=== PATIENT | male | born 1955 | race Two or more races ===

== ENCOUNTER 2020-09-08 16:06 | Emergency (ER) | payer MEDICAID, OTHER ==
[~2020-09-08] VITALS: Ht 162.6 cm; Wt 68.0 kg
[2020-09-08 16:10] VITALS: BP 100/58
[2020-09-08] MEDS ORDERED: LIBRIUM10 MG ORAL (16:24)
[2020-09-08] MEDS ORDERED: PROTONIX40 MG ORAL (16:24)
[2020-09-08] MEDS ORDERED: TRAZODONE HCL150 MG ORAL (16:24)
--- NOTE | 2020-09-08 16:32 | Emergency Room Report ---
History of Present Illness General Chief Complaint: Alcohol Intoxication Present Illness HPI 65-year-old male presents to the emergency department complaining of 6 out of 10 severity pain to the bilateral knees status post mechanical trip and fall for which he landed on his knees. Patient reports that he has been drinking a lot of vodka today. Patient reports he only drinks vodka. He is also reporting some left-sided chest pain. He denies midline neck or back pain he denies headache he denies nausea or vomiting. He denies abdominal pain or tenderness. Patient reports he is hungry. He reports he is currently taking Librium, Protonix and trazodone. He denies having any other complaints at this time. He denies cardiac HX. Allergies: Coded Allergies: No Known Allergies (Unverified , 09/08/20) COVID-19 Screening Contact w/high risk pt: No Experienced COVID-19 symptoms?: No COVID-19 Testing performed WINDMILL TECHNICIAN: No Patient History Past Medical History: see triage record Past Surgical History: none Pertinent Family History: none Reviewed Nursing Documentation: PMH: Agreed; PSxH: Agreed Review of Systems All Other Systems: negative except mentioned in HPI Physical Exam Vital Signs Date Time Temp Pulse Resp B/P (MAP) Pulse Ox O2 Delivery O2 Flow Rate FiO2 09/08/20 16:08 98.4 100 19 100/58 (72) 100 Room Air Sp02 EP Interpretation: reviewed, normal General Appearance: no apparent distress, alert, GCS 15, non-toxic Head: normocephalic, atraumatic Eyes: bilateral eye normal inspection, bilateral eye PERRL ENT: hearing grossly normal, normal voice Neck: full range of motion, no bony tend Respiratory: chest non-tender, lungs clear, normal breath sounds, no respiratory distress, no accessory muscle use, no wheezing, speaking full sentences Cardiovascular #1: regular rate, rhythm, no edema, normal capillary refill Gastrointestinal: normal bowel sounds, non tender, soft, non-distended, no guarding Genitourinary: normal inspection Musculoskeletal: back normal, normal range of motion, gait/station normal, tender - anterior knees tenderness, FROM, able to flex and extend. no obvious deformities, no increased laxity on exam. Some dirt on the pants in marixa anterior knee area c/w contact with the ground. Neurologic: alert, motor strength/tone normal, oriented x3, sensory intact, responsive, speech normal Psychiatric: judgement/insight normal Skin: no rash, normal color Medical Decision Making PA Attestation Dr. Browne is my supervising Physician whom patient management has been dis cussed with. Diagnostic Impression: Primary Impression: Acute alcoholic intoxication Qualified Codes: F10.920 - Alcohol use, unspecified with intoxication, uncomplicated ER Course 65-year-old male presents to the emergency department complaining of 6 out of 10 severity pain to the bilateral knees status post mechanical trip and fall for which he landed on his knees. Patient reports that he has been drinking a lot of vodka today. Patient reports he only drinks vodka. He is also reporting some left-sided chest pain. He denies midline neck or back pain he denies headache he denies nausea or vomiting. He denies abdominal pain or tenderness. Patient reports he is hungry. He reports he is currently taking Librium, Protonix and trazodone. He denies having any other complaints at this time. He denies cardiac HX. Ddx considered but are not limited to ETOH, Trauma, Syncope, dementia, OD Vital signs: are WNL, pt. is afebrile H&PE are most consistent with ETOH abuse. NO obvious signs of head trauma. No neck pain. Pt. answers questions appropriately. ORDERS: - CBC: WNL -CMP: WNL -Troponin: 0.00 -Serum ETOH : 210 -EK NSR X-rays Bilateral Knees- 3 views each: OA/degenerative changes ED INTERVENTIONS: Observance while he detoxifies. Pt. was allowed to sleep/rest. PT. remained awake and alert x 4. HE eventually ambulated on his own to the nurses station and requested to go home. Pt. is clinically sober with non- slurred detailed speech and a normal steady gait. DISCHARGE: At this time pt. is stable for d/c to home. Will provide printed patient care instructions, and any necessary prescriptions. Care plan and follow up instructions have been discussed with the patient prior to discharge. Labs Test 09/08/20 16:45 White Blood Count 8.0 K/UL (4.8-10.8) Red Blood Count 4.56 M/UL (4.70-6.10) Hemoglobin 13.3 G/DL (14.2-18.0) Hematocrit 42.5 % (42.0-52.0) Mean Corpuscular Volume 93 FL (80-99) Mean Corpuscular Hemoglobin 29.3 PG (27.0-31.0) Mean Corpuscular Hemoglobin Concent 31.4 G/DL (32.0-36.0) Red Cell Distribution Width 17.8 % (11.6-14.8) Platelet Count 253 K/UL (150-450) Mean Platelet Volume 7.4 FL (6.5-10.1) Neutrophils (%) (Auto) 62.3 % (45.0-75.0) Lymphocytes (%) (Auto) 28.1 % (20.0-45.0) Monocytes (%) (Auto) 5.4 % (1.0-10.0) Eosinophils (%) (Auto) 2.4 % (0.0-3.0) Basophils (%) (Auto) 1.8 % (0.0-2.0) Sodium Level 145 MMOL/L (136-145) Potassium Level 3.8 MMOL/L (3.5-5.1) Chloride Level 111 MMOL/L (98-107) Carbon Dioxide Level 26 MMOL/L (21-32) Anion Gap 8 mmol/L (5-15) Blood Urea Nitrogen 8 mg/dL (7-18) Creatinine 0.8 MG/DL (0.55-1.30) Estimat Glomerular Filtration Rate > 60 mL/min (>60) Glucose Level 98 MG/DL (74-106) Calcium Level 8.4 MG/DL (8.5-10.1) Total Bilirubin 0.3 MG/DL (0.2-1.0) Aspartate Amino Transf (AST/SGOT) 24 U/L (15-37) Alanine Aminotransferase (ALT/SGPT) 27 U/L (12-78) Alkaline Phosphatase 77 U/L (46-116) Troponin I 0.000 ng/mL (0.000-0.056) Total Protein 6.9 G/DL (6.4-8.2) Albumin 3.3 G/DL (3.4-5.0) Globulin 3.6 g/dL Albumin/Globulin Ratio 0.9 (1.0-2.7) Serum Alcohol 210 mg/dL EKG Diagnostic Results Troponin ordered: Yes When was troponin ordered?: Sep 08, 2020 EKG Time: 16:42 Rate: normal - 97 bpm Rhythm: NSR ST Segments: no acute changes ASA given to the pt in ED: No PA Scribe Text This Interpretation was scribed by FAM Arnold. Other X-Ray Diagnostic Results Other X-Ray Diagnostic Results #1: X-Ray ordered: Left KNee # of Views/Limited Vs Complete: 3 View Indication: Pain EP Interpretation: Yes FAM Xray: Interpretation reviewed, by supervising MD, and agrees with findings. Interpretation: no dislocation, no soft tissue swelling, no fractures, other - Mild osteoarthritic changes. No acute fracture or dislocation. Impression: Other - Degenerative changes Electronically Signed by: Gladys Arnold PA-C Other X-Ray Diagnostic Results #2: X-Ray ordered: Right Knee # of Views/Limited Vs Complete: 3 View Indication: Pain EP Interpretation: Yes FAM Xray: Interpretation reviewed, by supervising MD, and agrees with findings. Interpretation: no dislocation, no soft tissue swelling, no fractures, other - Mild to moderate osteoarthritic changes and 0.8 cm benign exostosis arising from the medial femoral condyle Impression: Other Electronically Signed by: Gladys Arnold PA-C Last Vital Signs Date Time Temp Pulse Resp B/P (MAP) Pulse Ox O2 Delivery O2 Flow Rate FiO2 09/08/20 16:08 98.4 100 19 100/58 (72) 100 Room Air Status: improved Disposition: HOME, SELF-CARE Condition: Stable Patient Instructions: Alcohol Abuse and Nutrition Gladys Arnold Sep 08, 2020 16:32
[2020-09-08 17:11] LABS: BASOPHILS % (AUTO) 1.8 % (0.0-2.0); EOSINOPHILS % (AUTO) 2.4 % (0.0-3.0); HEMATOCRIT 42.5 % (42.0-52.0); HEMOGLOBIN 13.3 G/DL (14.2-18.0); LYMPHOCYTES % (AUTO) 28.1 % (20.0-45.0); MEAN CORPUSCULAR VOLUME 93 FL (80-99); MONOCYTES % (AUTO) 5.4 % (1.0-10.0); NEUTROPHILS % (AUTO) 62.3 % (45.0-75.0); PLATELET COUNT 253 K/UL (150-450); RED BLOOD COUNT 4.56 M/UL (4.70-6.10); RED CELL DISTRIBUTION WIDTH 17.8 % (11.6-14.8)
[2020-09-08 17:12] LABS: ANION GAP 8 mmol/L (5-15); BLOOD UREA NITROGEN 8 mg/dL (7-18); CALCIUM 8.4 MG/DL (8.5-10.1); CARBON DIOXIDE 26 MMOL/L (21-32); CHLORIDE 111 MMOL/L (98-107); CREATININE 0.8 MG/DL (0.55-1.30); POTASSIUM 3.8 MMOL/L (3.5-5.1); SODIUM 145 MMOL/L (136-145)
[2020-09-08 17:18] LABS: ALANINE AMINOTRANSFERASE 27 U/L (12-78); ALBUMIN 3.3 G/DL (3.4-5.0); ALBUMIN/GLOBULIN RATIO 0.9 (1.0-2.7); ALKALINE PHOSPHATASE 77 U/L (46-116); ASPARTATE AMINO TRANSFERASE 24 U/L (15-37); BILIRUBIN,TOTAL 0.3 MG/DL (0.2-1.0)
--- NOTE | 2020-09-08 17:45 | Diagnostic Imaging Report ---
ADDENDUM - Added by Jonathon Ma MD on 09/08/2020 5:50 PM (-08:00) Lateral view of the right knee joint was received. Mild to moderate osteoarthritic changes are noted most notably at the patellofemoral joint. Very small right knee joint effusion. No acute fracture or dislocation. 0.8 cm benign exostosis arising from the medial femoral condyle. EXAM: XR Right Knee, 3 Views CLINICAL HISTORY: PAIN TECHNIQUE: Three views of the right knee. COMPARISON: No previous study. FINDINGS: Bones/joints: AP and oblique views of the right knee joint are provided. Mild to moderate osteoarthritic changes are noted. No acute fracture or dislocation detected on the provided views. Soft tissues: Soft tissues are unremarkable. IMPRESSION: 1. Limited evaluation as no true lateral view was provided. 2. Mild to moderate osteoarthritic changes about the right knee joint. 3. Clinical correlation is advised. <MYCVCSECTION> Communications: 09/08/20 18:05 Verify Receipt Verified receipt with BRANDI thornton, given to Dr Browne on 09/08 18:07 (-08:00)
--- NOTE | 2020-09-08 17:47 | Diagnostic Imaging Report ---
EXAM: XR Left Knee, 3 Views CLINICAL HISTORY: PAIN TECHNIQUE: Three views of the left knee. COMPARISON: No previous study. FINDINGS: Bones/joints: Mild osteoarthritic changes about the left knee joint are noted. No acute fracture, dislocation, or destructive process. No joint effusion. Soft tissues: Soft tissues are unremarkable. IMPRESSION: 1. Mild osteoarthritic changes. 2. No acute fracture or dislocation.
[2020-09-08 19:35] VITALS: BP 121/59
--- NOTE | 2020-09-10 19:21 | Cardiology Report ---
APPROVED REPORT EKG Measurement Heart [id number] <Conclusion> Normal sinus rhythm Voltage criteria for left ventricular hypertrophy Inferior infarct, age undetermined Abnormal ECG
== END 2020-09-08 19:35 | disposition home or self-care (01) ==
LOC: EDBD 16:06 → EDUNIT# 16:06 → EMR 16:49
DX: F10.129 Alcohol abuse with intoxication, unspecified (principal); R07.9 Chest pain, unspecified; M25.562 Pain in left knee; M25.561 Pain in right knee; W01.0XXA Fall on same level from slipping, tripping and stumbling without subsequent striking against object, initial encounter; M17.0 Bilateral primary osteoarthritis of knee
CPT/HCPCS: 36415; 73562; 80053; 84484; 85025; 93005; G0480; Z7502; 99283

== ENCOUNTER 2020-09-08 23:10 | Emergency (ER) | payer OTHER ==
[~2020-09-08] VITALS: Ht 162.6 cm; Wt 77.1 kg
[~2020-09-08 23:10] MED LIST: LIBRIUM10 MG ORAL; PROTONIX40 MG ORAL; TRAZODONE HCL150 MG ORAL
--- NOTE | 2020-09-08 23:11 | NUR ---
ED Nurse Note: Pt brought in by ambulance from streets, pt obviously intoxicated ETOH. Pt states he has a hx of colon cancer, pt is answering questions but resistive to care, pt opens eyes when asked questions, pt placed on chemistry faculty member, Pt is A&Ox2 VSS
[2020-09-08 23:17] VITALS: BP 111/65
--- NOTE | 2020-09-08 23:17 | Emergency Room Report ---
History of Present Illness General Chief Complaint: Alcohol Intoxication Source: Patient Present Illness HPI This is a 65-year-old male with a history of colon cancer status post resection. He is also homeless and history of alcohol abuse. He was just here earlier this afternoon for alcohol intoxication. He presents with chief complaint of alcohol intoxication. He was in front of a store drinking heavily. The store insole lip turner called 911. Patient was vomiting. He denies any pain. No fever chills. No diarrhea. No chest pain. History also limited because of his alcohol intoxication. Allergies: Coded Allergies: No Known Allergies (Unverified , 09/08/20) COVID-19 Screening Contact w/high risk pt: No Experienced COVID-19 symptoms?: No COVID-19 Testing performed PRISON GUARD SUPERVISOR: No Patient History Past Medical History: see triage record, old chart reviewed Past Surgical History: other Pertinent Family History: none Social History: Reports: alcohol use Immunizations: other Reviewed Nursing Documentation: PMH: Agreed; PSxH: Agreed Nursing Documentation-PMH Hx Diabetes: Yes Review of Systems Gastrointestinal: Reports: nausea, vomiting All Other Systems: limited - Secondary to intoxication Physical Exam Vital Signs Date Time Temp Pulse Resp B/P (MAP) Pulse Ox O2 Delivery O2 Flow Rate FiO2 09/08/20 23:04 98.4 103 18 111/65 (80) 95 Room Air Vitals unremarkable Sp02 EP Interpretation: reviewed, normal General Appearance: well appearing, no apparent distress, alert, other - Strong smell of alcoholic beverage on breath Head: normocephalic, atraumatic Eyes: bilateral eye PERRL, bilateral eye EOMI ENT: hearing grossly normal, normal pharynx Neck: full range of motion, supple, no meningismus Respiratory: chest non-tender, lungs clear, normal breath sounds Cardiovascular #1: regular rate, rhythm, no murmur Gastrointestinal: normal bowel sounds, non tender, no mass, no organomegaly, no bruit, non-distended Musculoskeletal: back normal, normal range of motion Neurologic: grossly normal Psychiatric: mood/affect normal Medical Decision Making Homeless Attestation I, The treating physician, Dr Felix Figueroa, has assessed and agrees that patient i s medically stable for discharge to an outpatient disposition. Diagnostic Impression: Primary Impression: Acute alcoholic intoxication Qualified Codes: F10.920 - Alcohol use, unspecified with intoxication, uncomplicated ER Course Patient presents with alcohol intoxication. No trauma to warrant x-ray or CT scan. Will observe until clinical sobriety. Last Vital Signs Date Time Temp Pulse Resp B/P (MAP) Pulse Ox O2 Delivery O2 Flow Rate FiO2 09/08/20 23:04 98.4 103 18 111/65 (80) 95 Room Air Status: improved Disposition: OTH-HOMELESS Condition: Stable Patient Instructions: Alcohol Intoxication, [id number] Additional Instructions: Abstain from alcohol. Follow-up with your doctor in 7 days. Return if worse. Felix Figueroa MD Sep 08, 2020 23:17
--- NOTE | 2020-09-08 23:20 | NUR ---
ED Nurse Note: Pt sitting up in bed eating snacks he brought in. tolerating well
[2020-09-09 01:30] VITALS: BP 121/72
--- NOTE | 2020-09-09 02:16 | NUR ---
ED Nurse Note:] Pt resting in bed with eyes closed, non-labored breathing, no signs of distress. Will continue to monitor
[2020-09-09 04:45] VITALS: BP 121/65
--- NOTE | 2020-09-09 04:45 | NUR ---
ER DISCHARGE NOTE: Patient is cleared to be discharged per ERMD, pt is aox4, on room air, with stable vital signs. pt was given dc instructions, pt was able to verbalize understanding, pt id band removed. pt is able to ambulate with steady gait. pt took all belongings. Pt offered food but refused, pt has weather appropriate clothing
== END 2020-09-09 04:45 | disposition other institution (70) ==
LOC: EDBD 23:10 → EMR 23:21
DX: F10.129 Alcohol abuse with intoxication, unspecified (principal); E11.9 Type 2 diabetes mellitus without complications
CPT/HCPCS: 99282